=== PATIENT | female | born 1995 | race Two or more races ===

== ENCOUNTER 2016-06-18 07:18 | Outpatient (CLI) | payer SELFPAY ==
[2016-06-18 07:50] VITALS: BMI 30.4
== END 2016-06-18 08:15 | disposition home or self-care (01) ==
LOC: FBCOUT 07:18 → FBC 07:21 → FBCOUT 08:15
PROVIDERS: ATTEND Family Medicine
DX: O98.319 Other infections with a predominantly sexual mode of transmission complicating pregnancy, unspecified trimester (principal); A60.00 Herpesviral infection of urogenital system, unspecified; Z3A.00 Weeks of gestation of pregnancy not specified
CPT/HCPCS: 59025; 81002; G0463

== ENCOUNTER 2016-06-22 16:15 | Outpatient (CLI) | payer SELFPAY ==
[2016-06-22 16:50] VITALS: BMI 31.3
[2016-06-22] MEDS ORDERED: HYDROXYZINE PAMOATE 50 MG CAPSULE PO ONE (19:45)
== END 2016-06-22 20:20 | disposition home or self-care (01) ==
LOC: FBCOUT 16:15 → FBC 16:23 → FBCOUT 20:20
PROVIDERS: ATTEND Family Medicine
DX: O47.9 False labor, unspecified (principal); Z3A.00 Weeks of gestation of pregnancy not specified
CPT/HCPCS: 59025; 81002; A9270; G0463

== ENCOUNTER 2016-06-22 22:47 | Inpatient (IN) | payer SELFPAY ==
[2016-06-22 23:10] VITALS: BMI 31.0
[2016-06-22] MEDS ORDERED: LACTATED RINGERS 1,000 ML IV SCH (23:15)
[2016-06-22] MEDS ORDERED: OXYTOCIN IN LR 500 ML IV ONE ×2 (23:15→23:35)
[2016-06-22] MEDS ORDERED: PENICILLIN G POTASSIUM 5 MMU in NS 0.9% (MINI-BAG PLUS) 100 ML IV ONE (23:15)
[2016-06-22] MEDS ORDERED: LACTATED RINGERS 1,000 ML IV PRN (23:15)
[2016-06-22] MEDS ORDERED: LACTATED RINGERS 2,000 ML ONE (23:34)
[2016-06-22] MEDS ORDERED: OXYTOCIN 10 UNITS/ML VIAL ONE (23:34)
[2016-06-22] MEDS ORDERED: IV START KIT ONE (23:34)
[2016-06-22] MEDS ORDERED: MINERAL OIL 25 ML BOT ONE (23:34)
[2016-06-22] MEDS ORDERED: LIDOCAINE 1% (PRES FREE) 30 ML VIAL ONE (23:34)
[2016-06-22] MEDS ORDERED: FENTANYL/ROPIVACAINE EPIDURAL 250 ML EP ONE (23:35)
[2016-06-22] MEDS ORDERED: LIDOCAINE Viscous 2% 15 ML UDCUP ONE (23:35)
[2016-06-22] MEDS ORDERED: EPIDURAL PUMP SET ONE (23:35)
[2016-06-22] MEDS ORDERED: PUMP TUBING ONE (23:35)
[2016-06-22] MEDS ORDERED: PENICILLIN G POTASSIUM 5 MMU VIAL ONE (23:36)
[2016-06-22] MEDS ORDERED: NS 0.9% (MINI-BAG PLUS) 100 ML IV ONE (23:36)
[2016-06-22 23:42] LABS: HEMATOCRIT 31.8 % (37.0-47.0); HEMOGLOBIN 10.2 gm/l (12.0-16.0); MEAN CELL VOLUME 72.4 fl (81.0-99.0); MEAN CORPUSCULAR HEMOGLOBIN 23.2 pg (27.0-31.0); MEAN CORPUSCULAR HGB CONC 32.1 g/dl (33.0-37.0); RED CELL DISTRIBUTION WIDTH 15.9 % (11.5-14.5)
[2016-06-22] MEDS ORDERED: EPIDURAL PROCEDURE TRAY ONE (23:59)
--- NOTE | 2016-06-23 00:21 | PCMAN ---
OB Admission Note - History : 2 Term: 1 : 1 Livin EDC:: 06/20/16 Gestational Age (weeks): 40 Days (#/7): 2 Admit Cervical Dilation:: 4.5 Admit Cervical Effacement (%):: 90 Admit Station:: -2 Admit Presentaton:: [facility] Membrane Status: Intact Labor Onset (Date): 06/22/16 Labor Onset (Time): 22:00 Contractions: Yes Contraction Frequency:: 2 Heart Rate:: 140 Status:: CAT 1 EFW:: 3.5kg Summary of Course:: Complicated by Herpes on prophy, GBS +. - Labs Blood Type: O (+) positive Rubella Status: Immune GBS Status: Positive Abnormal Labs: None - Review of Systems Good FM, no lof or vb. UC's starting yesterday. Came in earlier today then sent home as no cervical change. Has had cough, runny nose. No body aches, fever or sore throat. No genital lesions, no itching or burning. - Physical Exam General: Afebrile Psych/Mental Status: Mood/Affect Appropriate Lungs: Clear to Auscultation Bilaterally Cardiovascular: Regular Rate and Rhythm, No Murmur Abdomen: Normal Bowel Sounds Genitourinary: Normal Female Genitalia, Other (no lesions) Extremities: No Edema Skin: Warm, Dry, No Rash - Problems (1) Herpes genitalis in women Status: Acute Code: A60.09 Assessment/Plan: normal exam, took prophy. Ok for vaginal delivery. (2) Normal labor Status: Acute Code: O80 Assessment/Plan: 20 y.o. at 40w2d in active labor with h/o herpes genitalis admitted for management of labor. Pain control: Desires epidural and currently being placed. GBS+: penicillin first dose given, routine protocol. Herpes: No lesions, on prophy, ok for vag delivery. heart tones CAT 1. + breast feeding BC per pcp Expectant management
--- NOTE | 2016-06-23 01:06 | PDOC36 ---
Provider Note Subject: pt now comfortable with epidural, fht cat 2 for variable decelerations that have recovered well and stopped after increased hydration and positional changes. Cervix 9/100/-1 with BBOW. ABX in since 14 or so. WIll observe with epidural and try to get second dose in but if srom will likely deliver. Pt. and in agreement, questions answered.
[2016-06-23] MEDS ORDERED: ONDANSETRON 4 MG/2ML 2 ML VIAL IV PRN (01:46)
[2016-06-23] MEDS ORDERED: LACTATED RINGERS 500 ML IV PRN (01:46)
[2016-06-23] MEDS ORDERED: NALOXONE HCL 0.4 MG/ML VIAL IV PRN (01:46)
[2016-06-23] MEDS ORDERED: SODIUM CHLORIDE 0.9% 500 ML IV PRN (01:46)
[2016-06-23] MEDS ORDERED: NALBUPHINE HCL 20 MG/ML AMP IV PRN (01:46)
[2016-06-23] MEDS ORDERED: METOCLOPRAMIDE HCL 5 MG/ML 2ML VIAL IV PRN (01:46)
[2016-06-23] MEDS ORDERED: LACTATED RINGERS 1,000 ML IV SCH (01:46)
[2016-06-23] MEDS ORDERED: EPHEDRINE SULFATE 50 MG/ML 1ML VIAL IV PRN (01:46)
[2016-06-23] MEDS ORDERED: DIPHENHYDRAMINE HCL 50 MG/1 ML VIAL IV PRN (01:46)
[2016-06-23] MEDS ORDERED: MINERAL OIL 25 ML BOT TP ONE (02:29)
[2016-06-23] MEDS: FENTANYL/ROPIVACAINE EPIDURAL 250 ML EP SCH (02:45)
[2016-06-23] MEDS ORDERED: MAGNESIUM HYDROXIDE 30 ML UDCUP PO PRN (02:48)
[2016-06-23] MEDS ORDERED: LANOLIN 50 APPLIC/7G TUBE TP PRN (02:48)
[2016-06-23] MEDS ORDERED: BENZOCAINE/MENTHOL 60 APPLIC/BOT TP PRN (02:48)
[2016-06-23] MEDS ORDERED: CALCIUM CARBONATE 500 MG TAB.CHEW PO PRN (02:48)
--- NOTE | 2016-06-23 02:54 | PCMDEL ---
Delivery Note - Labor 1st stage (hr/min):: 4 2nd stage (hr/min):: 20 min 3rd stage (hr/min):: 7min Total (hr/min):: [id number] Pushed (hr/min):: 19 min - Delivery Delivery (Date): 06/23/16 Delivery (Time): 02:19 Infant Gender: Male Presentation: Cephalic Position: OA Umbilical Cord: 3 Vessel, Nuchal Cord (cut on perineum) Delayed Cord Clamping:: Not Performed Placenta:: wnl EBL:: 500ml Perineum:: intact but R labial tear. Suture:: 4-0 vicryl Anesthesia/Meds:: epidural Length ROM:: 7 min Comments:: presented in labor and desired epidural. GBS+, received one dose of pcn about 2 hours prior to dc. Baby also had mec dx'd with arom about 7 min prior to delivery. No fevers. Pt. with desire to push so arom with delivery after a few pushes of vigorous male. Tight nuchal cord which was cut on the perineum. Small lac on the right labia repaired with 4-0 vicryl in usual fashion. Epidural anesthesia worked well. Active management with pit. of 3rd stage.
[2016-06-23] MEDS ORDERED: LACTATED RINGERS 1,000 ML ONE (03:47)
[2016-06-23] MEDS ORDERED: IV START KIT ONE (03:47)
[2016-06-23] MEDS ORDERED: PENICILLIN G 3 MIL UNIT PREMIX 3 MMU in Premix (D5W) 50 ml 1 EACH IV SCH (04:00)
[2016-06-23] MEDS: DOCUSATE SODIUM 100 MG CAPSULE PO PRN (09:34)
[2016-06-23] MEDS: IBUPROFEN 600 MG TABLET PO PRN ×3 (09:34→23:02)
[2016-06-23] MEDS: HYDROCODONE/ACETAMINOPHEN 5/325MG TABLET PO PRN (13:23)
[2016-06-24] MEDS: IBUPROFEN 600 MG TABLET PO PRN ×3 (05:04→17:25)
[2016-06-24 06:35] LABS: HEMATOCRIT 27.9 % (37.0-47.0); HEMOGLOBIN 8.6 gm/l (12.0-16.0)
[2016-06-24] MEDS: DOCUSATE SODIUM 100 MG CAPSULE PO PRN (10:36)
[2016-06-24] MEDS: HYDROCODONE/ACETAMINOPHEN 5/325MG TABLET PO PRN ×3 (10:37→20:06)
--- NOTE | 2016-06-24 11:40 | PDOC44 ---
- Subjective Day: 1 Patient doing well. Desires early d/c but willing to wait as baby needs 48 hrs obs for inadequate IAP for GBS. Tolerating PO. Denies dizziness with ambulating. Reports Pain Tolerable, Reports , Reports Lochia Moderate, Reports Tolerating Regular Diet, Denies Nausea, Denies Vomiting - Objective Temp Pulse Resp BP Pulse Ox 98.1 F 76 16 104/69 06/24/16 07:25 06/24/16 07:25 06/24/16 07:25 06/24/16 07:25 Lab Results 06/24/16 06:10 Hgb 8.6 L Hct 27.9 L Current Medications Generic Name Dose Route Start Last Admin Trade Name Freq PRN Reason Stop Dose Admin Acetaminophen/Hydrocodone Bitart 1 - 2 tab 06/23/16 02:48 06/24/16 10:37 Reeder 5/325 PO 1 tab Q4H PRN Administration Pain (Moderate) Benzocaine/Menthol 1 applic 06/23/16 02:48 Dermoplast TP PRN PRN Patient Comfort Calcium Carbonate/Glycine 500 mg 06/23/16 02:48 Tums PO BID PRN Indigestion Docusate Sodium 100 mg 06/23/16 02:48 06/24/16 10:36 Colace PO 100 mg DAILY PRN Administration Comfort Emollient Ointment 1 applic 06/23/16 02:48 06/24/16 07:46 [id number] TP 1 tube PRN PRN Administration sore nipples Ropivacaine/Fentanyl/NS 250 mls @ 0 mls/hr 06/23/16 02:00 06/23/16 02:45 Fentanyl 2 Mcg/Ml + Ropivacaine 0.125% Ep Bag EP 12 mls/hr EPI NATAN Administration Protocol Per Protocol Ibuprofen 600 mg 06/23/16 02:48 06/24/16 10:36 Motrin PO 600 mg Q6H PRN Administration Pain (Mild) Magnesium Hydroxide 30 ml 06/23/16 02:48 Milk Of Magnesia PO BEDTIME PRN Constipation Sodium Chloride 10 ml 06/22/16 23:15 Normal Saline 10ml Flush IV PRN PRN IV Flush Sodium Chloride 10 ml 06/23/16 09:00 Normal Saline 10ml Flush IV Q8HR [facility] - Physical Exam General: Afebrile, No Acute Distress Psych/Mental Status: Mood/Affect Appropriate, Bonding Well Neurological: Alert, Normal Speech Lungs: Clear to Auscultation Bilaterally, Normal Air Movement Cardiovascular: Regular Rate and Rhythm, Normal S1, Normal S2 Fundus: Firm, Midline Extremities: Full ROM, No Edema, No Tenderness Skin: Normal Color, Warm, Dry, Intact, No Rash - Problems:Assessment/Plan (1) Herpes genitalis in women Status: Acute Assessment/Plan: Was on prophylaxis prior to delivery No active lesions (2) Acute blood loss anemia Status: Acute Assessment/Plan: Asymptomatic, will start iron as outpatient (3) (spontaneous vaginal delivery) Status: Acute Assessment/Plan: Doing well Continue PP care BF support Disposition: Stable, Anticipate DC Home Tomorrow
[2016-06-25] MEDS: HYDROCODONE/ACETAMINOPHEN 5/325MG TABLET PO PRN ×2 (00:49→07:37)
[2016-06-25] MEDS: IBUPROFEN 600 MG TABLET PO PRN ×2 (00:50→07:36)
[2016-06-25] MEDS: FENTANYL/ROPIVACAINE EPIDURAL 250 ML EP SCH ×2 (03:24→03:27)
[2016-06-25] MEDS: DOCUSATE SODIUM 100 MG CAPSULE PO PRN (07:36)
[2016-06-25 07:41] VITALS: BP 104/62
--- NOTE | 2016-06-25 09:12 | PDOC39B ---
Hospital Course: ADMIT DATE: 06/22/16 DISCHARGE DATE: 06/24/16 ADMISSION DIAGNOSES: labor PROCEDURES: HISTORY OF PRESENT ILLNESS: 20 year old G2 T1 P1 A L1 at 40 weeks 3 days presenting with labor. HOSPITAL COURSE: The patient delivered rapidly, only 2 hours of PCN, so kept for 48 hour observation. By day of discharge the patient is ambulating, eating, voiding, and passing flatus without difficulty. Pain is controlled and lochia is appropriate. She is [] - Physical Exam Vital Signs: Temp Pulse Resp BP Pulse Ox 97.8 F 68 14 104/62 06/25/16 07:39 06/25/16 07:39 06/25/16 07:39 06/25/16 07:39 General: Afebrile Neurological: Alert Lungs: Clear to Auscultation Bilaterally Cardiovascular: Regular Rate and Rhythm Breast: Soft Fundus: Firm Abdomen: Normal Bowel Sounds Lochia: Light Extremities: Other (nt, no edema) Skin: Normal Color - Discharge Diagnosis (1) (spontaneous vaginal delivery) Status: Acute Assessment/Plan: Doing well Continue PP care discharge home (2) Acute blood loss anemia Status: Acute Assessment/Plan: Asymptomatic, will start iron as outpatient - Discharge Plan Condition: Good Disposition: Home Prescriptions: Ibuprofen [Motrin] 800 mg PO Q8H PRN #30 tablet PRN Reason: Pain FERROUS SULFATE (65 Fe) [IRON FERROUS SULFATE 325 MG TABLET (SHF)] 325 mg PO DAILY #30 tab Hydrocodone Bit/Acetaminophen [[place] 5/325] 1 tab PO Q4-6H PRN #30 tablet PRN Reason: Pain Follow-Up: Paola Ernst MD [Primary Care Provider] -
== END 2016-06-25 11:45 | disposition home or self-care (01) | DRG 774 ==
LOC: FBC 22:47 → FBCOUT 22:47 → FBC 23:11 → FBCOUT 23:11
PROVIDERS: ADMIT Family Medicine; ATTEND Family Medicine
PROC: 00HU33Z Insertion of Infusion Device into Spinal Canal, Percutaneous Approach (ICD-10-PCS; 2016-06-22)
PROC: 10E0XZZ Delivery of Products of Conception, External Approach (ICD-10-PCS; principal; 2016-06-23)
PROC: 0UQM0ZZ Repair Vulva, Open Approach (ICD-10-PCS; 2016-06-23)
PROC: 10907ZC Drainage of Amniotic Fluid, Therapeutic from Products of Conception, Via Natural or Artificial Opening (ICD-10-PCS; 2016-06-23)
DX: O98.52 Other viral diseases complicating childbirth (principal); D62 Acute posthemorrhagic anemia; A60.09 Herpesviral infection of other urogenital tract; O99.824 Streptococcus B carrier state complicating childbirth; O76 Abnormality in fetal heart rate and rhythm complicating labor and delivery; O70.0 First degree perineal laceration during delivery; O69.1XX0 Labor and delivery complicated by cord around neck, with compression, not applicable or unspecified; O90.81 Anemia of the puerperium; Z79.899 Other long term (current) drug therapy; Z3A.40 40 weeks gestation of pregnancy; Z37.0 Single live birth